=== PATIENT | male | born 1940 | race African-American/Black ===

== ENCOUNTER 2017-08-29 19:41 | Emergency (ER) | payer OTHER ==
[~2017-08-29] VITALS: Ht 175.3 cm; Wt 93.9 kg
[~2017-08-29 19:41] MED LIST: AMLODIPINE BESYL5 MG PO; ASPIRIN81 MG PO; FLOMAX0.4 MG PO; GABAPENTIN300 MG PO; GLIPIZIDE5 MG PO; HYDROCHLOROTHIA25 MG PO; ISOSORBIDE MONO20 MG PO; LOSARTAN POTAS100 MG PO; LOVASTATIN40 MG PO; OMEPRAZOLE40 MG PO; PEPCID20 MG PO; PLAVIX75 MG PO
[2017-08-29 20:36] VITALS: BP 150/82
== END 2017-08-29 20:38 | disposition home or self-care (01) ==
LOC: FSED 19:41
DX: S00.83XA Contusion of other part of head, initial encounter (principal); S60.221A Contusion of right hand, initial encounter; S60.211A Contusion of right wrist, initial encounter; S60.811A Abrasion of right wrist, initial encounter; W18.39XA Other fall on same level, initial encounter; Y92.008 Other place in unspecified non-institutional (private) residence as the place of occurrence of the external cause; I10 Essential (primary) hypertension
CPT/HCPCS: 70450; 99282